=== PATIENT | male | born 2000 | race Two or more races ===

== ENCOUNTER 2020-06-18 17:06 | Emergency (ER) | payer MEDICAID, OTHER ==
[~2020-06-18] VITALS: Ht 185.4 cm; Wt 99.8 kg
[2020-06-18 17:17] VITALS: BP 121/69
[2020-06-18] MEDS ORDERED: KETOROLAC TROMETH 30 MG/ML 1ML VIAL IV ONE (17:45)
[2020-06-18] MEDS ORDERED: CEFTRIAXONE SODIUM 2 GM in D5W 5% 50 ML IV ONE (17:45)
[2020-06-18] MEDS ORDERED: cefTRIAXone 1GM/50ML D5W 100 ML IV ONE (17:49)
[2020-06-18] MEDS ORDERED: cefTRIAXone 1GM/50ML D5W 50 ML IV ONE ×2 (18:00)
== END 2020-06-18 18:27 | disposition home or self-care (01) ==
LOC: ER 17:06
DX: L03.115 Cellulitis of right lower limb (principal)
CPT/HCPCS: 96365; 96375; 99284; J0696; J1885; J7060

== ENCOUNTER 2020-07-05 17:13 | Emergency (ER) | payer MEDICAID ==
[~2020-07-05] VITALS: Ht 182.9 cm; Wt 101.2 kg
[2020-07-05] MEDS ORDERED: SODIUM CHLORIDE 0.9% 1,000 ML IVB ONE (17:30)
[2020-07-05 17:44] VITALS: BP 119/65
[2020-07-05 18:09] LABS: Basophils # (auto) 0.1 10 ^3/uL (0-0.2); Basophils % (auto) 1.3 % (0.0-2.0); Eosinophils # (auto) 0.3 10 ^3/uL (0-0.8); Eosinophils % (auto) 4.5 % (0.0-7.0); Hematocrit 42.6 % (41.0-53.0); Hemoglobin 14.1 g/dL (13.5-17.5); Lymphocytes # (auto) 2.1 10 ^3/uL (0.4-5.4); Mean Corpuscular Hemoglobin 29.2 pg (28.0-32.0); Mean Corpuscular Volume 88.5 fL (80.0-100.0); Monocytes # (auto) 0.6 10 ^3/uL (0-1.3); Neutrophils # (auto) 4.1 10 ^3/uL (1.6-8.6); Neutrophils % (auto) 57.2 % (37.0-80.0); Nucleated Red Blood Cells % 0.2 %; Platelet Count (auto) 295 10^3/uL (140-450); Red Blood Cells 4.81 10^6/uL (4.5-5.90); Red Cell Distribution Width 13.3 % (11.8-14.3); White Blood Cell 7.1 10^3/uL (4.4-10.8)
[2020-07-05 18:21] LABS: Albumin 4.2 g/dL (3.4-5.0); Anion Gap 6 (5-15); Blood Urea Nitrogen 16 mg/dL (7-18); Calcium 8.9 mg/dL (8.5-10.1); Carbon Dioxide 26 mmol/L (21-32); Chloride 105 mmol/L (98-107); Glucose 104 mg/dL (74-106); Sodium 137 mmol/L (136-145)
[2020-07-05 18:27] LABS: Alanine Aminotransferase 20 U/L (16-61); Alkaline Phosphatase 56 U/L (45-117); Aspartate Aminotransferase 20 U/L (15-37); BUN/Creatinine Ratio 17.6; Bilirubin, Total 0.3 mg/dL (0.2-1.0); GFR African American 134 mL/min; GFR Non-African American 111 mL/min
== END 2020-07-05 19:08 | disposition home or self-care (01) ==
LOC: ER 17:13
DX: R07.89 Other chest pain (principal); F17.210 Nicotine dependence, cigarettes, uncomplicated; F12.10 Cannabis abuse, uncomplicated
CPT/HCPCS: 36415; 80053; 84484; 85025; 96360; 99284; J7030; 93005